=== PATIENT | male | born 1935 | race Caucasian/White ===

== ENCOUNTER 2018-09-06 18:09 | Observation (INO) | payer MEDICARE, OTHER ==
--- NOTE | 2018-09-06 18:31 | ER Document Report ---
ED General - General Mode of Arrival: Medic Information source: Patient <DAGOBERTO MANDEL - Last Filed: 09/07/18 02:58> <GRETCHEN MCCORMICK - Last Filed: 09/07/18 03:31> - General Chief Complaint: Low Blood Pressure Stated Complaint: LOW BLOOD PRESSURE Time Seen by Provider: 09/06/18 18:20 Notes: Patient is an 83 year old male presenting to the emergency department via EMS due to decreased blood pressure. Patient is a poor historian due to his dementia and states he does not know why he is here, further stating "my sent me here". He later admits to previously being a little lightheaded. He denies any chest pain, vomiting, diarrhea or any focal pain. Nurses states, according to EMS, the patient's took the his blood pressure after he complained about being lightheaded. She recorded a blood pressure in the 40s systolic via pressure cuff and proceeded to call EMS. EMS recorded a blood pressure of 105/58 and gave 100 cc's of fluid. Patient's blood pressure at bedside is 90/58. (TEQUILADAGOBERTO PULIDO) - Related Data Allergies/Adverse Reactions: No Known Allergies Allergy (Verified 09/06/18 20:45) Past Medical History - General Information source: Patient Cannot obtain history due to: Dementia - Social History Smoking Status: Unknown if Ever Smoked Family History: Reviewed & Not Pertinent <DAGOBERTO MANDEL - Last Filed: 09/07/18 02:58> Review of Systems - Review of Systems -: Yes ROS unobtainable due to patient's medical condition <TEQUILADAGOBERTO - Last Filed: 09/07/18 02:58> Physical Exam <DAGOBERTO MANDEL - Last Filed: 09/07/18 02:58> <GRETCHEN MCCORMICK Bety - Last Filed: 09/07/18 03:31> - Vital signs Vitals: Resp BP Pulse Ox 19 90/48 L 97 09/06/18 18:16 09/06/18 18:16 09/06/18 18:16 - Notes Notes: GENERAL: Alert, interacts well. No acute distress. HEAD: Normocephalic, atraumatic. EYES: Pupils equal, round, and reactive to light. Extraocular movements intact. ENT: Oral mucosa dry, tongue midline. NECK: Full range of motion. Supple. Trachea midline. LUNGS: Clear to auscultation bilaterally, no wheezes, rales, or rhonchi. No respiratory distress. HEART: Regular rate and rhythm. No murmurs, gallops, or rubs. ABDOMEN: Soft, non-tender. Non-distended. Bowel sounds present in all 4 quadrants. EXTREMITIES: Moves all 4 extremities spontaneously. No edema, radial and dorsalis pedis pulses 2/4 bilaterally. No cyanosis. NEUROLOGICAL: Alert. Oriented to person and place, not to time. PSYCH: Normal affect, normal mood. SKIN: Warm, dry, normal turgor. No rashes or lesions noted. (DAGOBERTO MANDEL) Course - Laboratory Result Diagrams: 09/06/18 18:20 09/06/18 18:20 <DAGOBERTO MANDEL - Last Filed: 09/07/18 02:58> - Laboratory Result Diagrams: 09/06/18 18:20 09/06/18 18:20 <GRETCHEN MCCORMICK - Last Filed: 09/07/18 03:31> - Re-evaluation Re-evalutation: 09/06/18 19:20 Upon reevaluation patient resting comfortably and is at bedside. She states that today that he was about ready to get in the car when he had a presyncopal event. He did not fall but he was assisted to be able to sit down. She happened to be having a doctor's appointment and was brought into the doctor office. She states that his systolic blood pressure was in the 50s. Upon arrival EMS systolic was greater than 100. Initial EKG concerning findings other than right bundle branch block with no previous on file. Patient does have a pacemaker and has atrial paced complexes. Patient does appear to have moderate dry oral mucous membranes provide 1/2 L fluid bolus and perform orthostatic vital signs. states that he does have a appointment with his shoe turner tomorrow for regularly routine visit. 09/06/18 20:32 Patient will be admitted for observation will be provided gentle hydration. Job she did have a mild orthostatic hypotension and with dry oral mucous membranes I suspect he is behind on his fluid intake. However, due to his comorbidities and near syncopal event will be observed overnight on telemetry while fluids are being provided. (GRETCHEN MCCORMICK) - Vital Signs Vital signs: Temp Pulse Resp BP Pulse Ox 98.0 F 71 16 133/58 H 96 09/07/18 00:15 09/07/18 00:15 09/07/18 00:15 09/07/18 00:15 09/07/18 00:15 - Laboratory Laboratory results interpreted by me: 09/06/18 09/06/18 09/06/18 18:20 18:20 18:20 RDW 17.7 H PT 23.3 H BUN 21 H Creatinine 1.44 H Est GFR ( Amer) 57 L Est GFR (Non-Af Amer) 47 L Glucose 128 H AST 15 L ALT 18 L Alkaline Phosphatase 129 H - EKG Interpretation by Me Additional EKG results interpreted by me: 09/06/18 19:22 Time 18:27, Rate 70, atrial paced complexes, RBBB, normal axis (GRETCHEN MCCORMICK) Discharge <DAGOBERTO MANDEL - Last Filed: 09/07/18 02:58> - Discharge Admitting Provider: [facility] Admitted: Telemetry <GRETCHEN MCCORMICK - Last Filed: 09/07/18 03:31> - Discharge Clinical Impression: Orthostatic hypotension, Dehydration, Near syncope Condition: Good Disposition: ADMITTED OBSERVATION Scribe Attestation: 09/07/18 03:31 I personally performed the services described in the documentation, reviewed and edited the documentation which was dictated to the scribe in my presence, and it accurately records my words and actions. (GRETCHEN MCCORMICK) Scribe Documentation - Scribe Written by Humbertoe:: Arlin Sellers, 09/06/2018 19:00 acting as scribe for :: Hitesh <DAGOBERTO MANDEL - Last Filed: 09/07/18 02:58>
[2018-09-06] MEDS ORDERED: NORMAL SALINE 500 ML IV ONE (18:41)
[2018-09-06 18:48] LABS: ABSOLUTE EOSINOPHILS # (AUTO) 0.4 10^3/uL (0.0-0.6); ABSOLUTE LYMPHOCYTES (AUTO) 1.2 10^3/uL (0.5-4.7); ABSOLUTE MONOCYTES (AUTO) 0.7 10^3/uL (0.1-1.4); BASOPHILS % (AUTO) 0.5 % (0-2); HEMATOCRIT 44.7 % (37.9-51.0); LYMPHOCYTES % (AUTO) 16.8 % (13-45); MEAN CORPUSCULAR HEMOGLOBIN 30.8 pg (27.0-33.4); MEAN CORPUSCULAR HGB CONC 33.6 g/dL (32.0-36.0); MEAN CORPUSCULAR VOLUME 92 fl (80-97); MONOCYTES % (AUTO) 9.3 % (3-13); PLATELET COUNT 175 10^3/uL (150-450); RED BLOOD COUNT 4.88 10^6/uL (4.35-5.55); RED CELL DISTRIBUTION WIDTH 17.7 % (11.5-14.0); SEGMENTED NEUTROPHILS % (AUTO) 68.4 % (42-78); TOTAL CELLS COUNTED % (AUTO) 100 %; WHITE BLOOD COUNT 7.2 10^3/uL (4.0-10.5)
[2018-09-06 19:03] LABS: ALANINE AMINOTRANSFERASE 18 U/L (21-72); ALBUMIN 3.9 g/dL (3.5-5.0); ALKALINE PHOSPHATASE 129 U/L (38-126); ANION GAP 14 (5-19); ASPARTATE AMINO TRANSFERASE 15 U/L (17-59); BILIRUBIN,DIRECT 0.2 mg/dL (0.0-0.4); BILIRUBIN,TOTAL 0.7 mg/dL (0.2-1.3); BLOOD UREA NITROGEN 21 mg/dL (7-20); CALCIUM 8.9 mg/dL (8.4-10.2); CARBON DIOXIDE 24 mmol/L (22-30); CHLORIDE 101 mmol/L (98-107); GLUCOSE 128 mg/dL (75-110); POTASSIUM 4.8 mmol/L (3.6-5.0); SODIUM 138.7 mmol/L (137-145); TOTAL PROTEIN 7.3 g/dL (6.3-8.2)
[2018-09-06 19:14] LABS: NT PRO BNP 107 pg/mL (<450); TROPONIN I < 0.012 ng/mL
--- NOTE | 2018-09-06 19:20 | EKG REPORT ---
SEVERITY:- ABNORMAL ECG - ATRIAL-PACED COMPLEXES RBBB AND LPFB : Confirmed by: Jocelyn Preston MD 06-Sep-2018 19:19:22
--- NOTE | 2018-09-06 19:34 | RADIOLOGY REPORT (SQ) ---
EXAM DESCRIPTION: CHEST SINGLE VIEW COMPLETED DATE/TIME: 09/06/2018 7:15 pm REASON FOR STUDY: near syncope COMPARISON: None. NUMBER OF VIEWS: One view. TECHNIQUE: Single frontal radiographic view of the chest acquired. LIMITATIONS: None. FINDINGS: LUNGS AND PLEURA: Low lung volumes. No opacities, masses or pneumothorax. No pleural eff usion. MEDIASTINUM AND HILAR STRUCTURES: No masses. No contour abnormality. HEART AND VASCULAR STRUCTURES: Normal size. No evidence for failure. BONES: No acute findings. HARDWARE: Dual lead transvenous pacemaker. OTHER: No other significant finding. IMPRESSION: LOW LUNG VOLUMES. NO SIGNIFICANT RADIOGRAPHIC FINDING IN THE CHEST. TECHNICAL DOCUMENTATION: JOB ID: [id number] [employer]- All Rights Reserved Reading location - IP/workstation name: [email or web address]
[2018-09-06] MEDS ORDERED: NORMAL SALINE 1000 ML 1,000 ML IV ONE (20:32)
[2018-09-06] MEDS ORDERED: ACETAMINOPHEN 325 MG TABLET PO PRN (21:54)
[2018-09-06] MEDS ORDERED: MAG HYDROX/AL HYDROX/SIMETH SUSP 30 ML UDCUP PO PRN (21:54)
[2018-09-06] MEDS ORDERED: PROMETHAZINE HCL 25 MG TABLET PO PRN (21:54)
[2018-09-06] MEDS ORDERED: PROMETHAZINE HCL INJ 25 MG/1 ML VIAL IV PRN (21:54)
[2018-09-06] MEDS ORDERED: NORMAL SALINE 1000 ML 1,000 ML IV PRN (21:54)
[2018-09-06] MEDS ORDERED: RIVAROXABAN 10 MG TABLET PO ONE (22:30)
[2018-09-06 22:49] LABS: INTERNATIONAL RATION (INR) 1.96; PROTHROMBIN TIME 23.3 SEC (11.4-15.4)
[2018-09-06] MEDS ORDERED: RIVAROXABAN 10 MG TABLET ONE (22:58)
[2018-09-06] MEDS ORDERED: TAMSULOSIN HCL 0.4 MG CAP.SR.24H PO ONE (23:00)
--- NOTE | 2018-09-06 23:05 | PDOC H&P ---
History of Present Illness Admission Date/PCP: 09/06/18 20:50 Janice Calix MD Patient complains of: Near syncope History of Present Illness: KATHERINE BAILEY is a 83 year old male who came to the emergency department via EMS. His tells me over the phone ([phone]), they went to visit his doctor and were waiting for 1/2-hour, he did not have anything to drink, he started feeling lightheaded, faint and very weak, he did not fall but he was really of balance, they called EMS and when they arrive they do his blood pressure and the systolic was in the 40s. Gave 100 mL of normal saline. Patient has history of dementia and cannot cooperate reliable with the interview. Patient denies any dizziness, lightheadedness, nausea, vomiting, shortness of breath, chest pain, abdominal pain, changes in his bowel movements or urine. Upon arrival to the hospital his systolic blood pressure was grater than 100 but dropped down and by the time I went to see him was 89/51. Patient totally asymptomatic. In the ED given a total of 500 cc IV. Patient has mild orthostatic hypotension with dry oral mucous membranes. Past Medical History Cardiac Medical History: Reports: Atrial Fibrillation - On Xarelto, Congestive Heart Failure - Unknown EF, Myocardial Infarction - When he was young GI Medical History: Reports: Gastroesophageal Reflux Disease Psychiatric Medical History: Reports: Dementia Past Surgical History Past Surgical History: Reports: Cholecystectomy, Herniorrhaphy, Pacemaker Social History Smoking Status: Current Every Day Smoker - Patient states he smokes 1 pack/day, will have to confirm this data Frequency of Alcohol Use: None Hx Recreational Drug Use: No Hx Prescription Drug Abuse: No Past Social History Note: Lives with his , telephone #[phone]. His son is the KIM Shah telephone #[phone] Family History Parental Family History Reviewed: No - Unable to obtain Children Family History Reviewed: NA Sibling(s) Family History Reviewed.: NA Medication/Allergy Home Medications: Lisinopril [Prinivil 10 mg Tablet] 10 mg PO DAILY 09/06/18 Metoprolol Tartrate [Lopressor 25 mg Tablet] 12.5 mg PO Q12 09/06/18 Rivaroxaban [Xarelto] 20 mg PO DAILY 09/06/18 Sertraline HCl [Zoloft 50 mg Tablet] 100 mg PO DAILY 09/06/18 Tamsulosin HCl [Flomax 0.4 mg Cap.sr] 0.4 mg PO QPM 09/06/18 Allergies/Adverse Reactions: No Known Allergies Allergy (Verified 09/06/18 20:45) Review of Systems Review of Systems: As outlined above, others negative Physical Exam Vital Signs: Temp Pulse Resp BP Pulse Ox 98.1 F 70 16 111/56 L 95 09/06/18 22:46 09/06/18 22:46 09/06/18 22:46 09/06/18 22:46 09/06/18 22:46 Additional comments: General appearance: Well-developed, well-nourished, alert and cooperative, and appears to be in no acute distress Head: Normocephalic Eyes: PEERL, EOMI, vision is grossly intact. Ears: External auditory canal and tympanic membranes clear, hearing grossly intact. Nose: No nasal discharge. Throat: Oral cavity and pharynx normal. No inflammation, swelling, exudate or lesions. Neck: Neck supple, nontender without lymphadenopathy, masses or thyromegaly. Cardiac: Normal S1 and S2. No S3, S4 or murmurs. Rhythm is regular. There is no peripheral edema, cyanosis or pallor. Extremities are warm and well perfused. Capillary refill is less than 2 seconds. No carotid bruits. Lungs: Clear to auscultation and percussion without rales, rhonchi, wheezing or diminished breath sounds. Not using accessory muscles. Abdomen: Positive bowel sounds. Soft. Nondistended, nontender. No guarding or rebound. No masses. No hepatosplenomegaly Extremities: No significant deformity or joint abnormality. No edema. Peripheral pulses intact. No varicosities. Neurological: Cranial nerves II through XII grossly intact. Strength and sensation symmetric and intact throughout. Reflexes 2+ throughout. Skin: Skin normal color, texture and turgor with no lesions or eruptions, warm and dry. Psychiatric: The mental examination revealed the patient was oriented to person , place, could not tell me the month, date, year or president. Results Laboratory Results: 09/06/18 09/06/18 09/06/18 18:20 18:20 18:20 WBC 7.2 RBC 4.88 Hgb 15.0 Hct 44.7 MCV 92 MCH 30.8 MCHC 33.6 RDW 17.7 H Plt Count 175 Seg Neutrophils % 68.4 Lymphocytes % 16.8 Monocytes % 9.3 Eosinophils % 5.0 Basophils % 0.5 Absolute Neutrophils 5.0 Absolute Lymphocytes 1.2 Absolute Monocytes 0.7 Absolute Eosinophils 0.4 Absolute Basophils 0.0 PT INR Sodium 138.7 Potassium 4.8 Chloride 101 Carbon Dioxide 24 Anion Gap 14 BUN 21 H Creatinine 1.44 H Est GFR ( Amer) 57 L Est GFR (Non-Af Amer) 47 L Glucose 128 H Calcium 8.9 Magnesium 1.9 Total Bilirubin 0.7 Direct Bilirubin 0.2 AST 15 L ALT 18 L Alkaline Phosphatase 129 H Troponin I < 0.012 NT-Pro-B Natriuret Pep 107 Total Protein 7.3 Albumin 3.9 09/06/18 18:20 WBC RBC Hgb Hct MCV MCH MCHC RDW Plt Count Seg Neutrophils % Lymphocytes % Monocytes % Eosinophils % Basophils % Absolute Neutrophils Absolute Lymphocytes Absolute Monocytes Absolute Eosinophils Absolute Basophils PT 23.3 H INR 1.96 Sodium Potassium Chloride Carbon Dioxide Anion Gap BUN Creatinine Est GFR ( Amer) Est GFR (Non-Af Amer) Glucose Calcium Magnesium Total Bilirubin Direct Bilirubin AST ALT Alkaline Phosphatase Troponin I NT-Pro-B Natriuret Pep Total Protein Albumin EKG Comments: Paced rhythm Impressions: Chest X-Ray 09/06/18 18:40 IMPRESSION: LOW LUNG VOLUMES. NO SIGNIFICANT RADIOGRAPHIC FINDING IN THE CHEST. Assessment & Plan - Diagnosis (1) Near syncope Is this a current diagnosis for this admission?: Yes Plan: Patient was at his doctor's office and has a near syncopal episode, it is felt most likely secondary to dehydration as his tells me that he usually forgets to eat or drink, patient had positive orthostatic vital signs. We will go ahead and hydrate the patient carefully as he has congestive heart failure of unknown ejection fraction. Will reassess orthostatic vital signs in the morning. Will do cardiac markers x3. Patient was a still hypotensive when I went to see him with a blood pressure of 81/51, he was asymptomatic, I am holding his lisinopril and metoprolol. If he improves by the morning probably no further workup needs to be done. (2) Dementia Is this a current diagnosis for this admission?: Yes Plan: Patient has advanced dementia, lives with his , his functional. tells me that he has been recently placed on sertraline about a week and a half ago as he was fidgeting. (3) Paroxysmal atrial fibrillation Is this a current diagnosis for this admission?: Yes Plan: Continue with metoprolol and Xarelto (4) Congestive heart failure Qualifiers: Heart failure chronicity: unspecified Is this a current diagnosis for this admission?: Yes Plan: Unknown if systolic or diastolic, does not know. Patient is not on Lasix. (5) Acute renal failure Qualifiers: Acute renal failure type: unspecified Qualified Code(s): N17.9 - Acute kidney failure, unspecified Is this a current diagnosis for this admission?: Yes Plan: BUN 21 and creatinine 1.44, this is unclear if this is acute or CKD, we are given IV fluids overnight and reassess the renal panel in the morning. At this point I do not feel a further workup is warranted. - Time Time Spent: 50 to 70 Minutes - Plan Summary Plan Summary: Case discussed with , she agrees with the plan.
[2018-09-07 04:54] LABS: APPEARANCE,URINE CLEAR; BILIRUBIN,URINE NEGATIVE (NEGATIVE); COLOR,URINE STRAW; GLUCOSE, URINE NEGATIVE (NEGATIVE); KETONES,URINE NEGATIVE (NEGATIVE); LEUKOCYTE ESTERASE,URINE NEGATIVE (NEGATIVE); NITRITE,URINE NEGATIVE (NEGATIVE); PROTEIN,URINE NEGATIVE (NEGATIVE); URINE SPECIFIC GRAVITY 1.006
[2018-09-07] MEDS: SERTRALINE HCL 50 MG TABLET PO SCH (10:45)
[2018-09-07 11:44] LABS: HEMATOCRIT 41.7 % (37.9-51.0); HEMOGLOBIN 14.2 g/dL (13.5-17.0); MEAN CORPUSCULAR HEMOGLOBIN 30.6 pg (27.0-33.4); MEAN CORPUSCULAR HGB CONC 33.9 g/dL (32.0-36.0); MEAN CORPUSCULAR VOLUME 90 fl (80-97); PLATELET COUNT 145 10^3/uL (150-450); RED BLOOD COUNT 4.63 10^6/uL (4.35-5.55); RED CELL DISTRIBUTION WIDTH 17.8 % (11.5-14.0); WHITE BLOOD COUNT 5.8 10^3/uL (4.0-10.5)
--- NOTE | 2018-09-07 12:20 | PDOC PROGRESS REPORT ---
Subjective Progress Note for:: 09/07/18 Subjective:: 09/06/18: KATHERINE PATHAK is a 83 year old male who presented to the emergency room with a history of acute near syncope. He was in his physician's office waiting room for approximately 1/2-hour and when he started to get up to go to the exam room he felt lightheaded, off balance, very weak and as though he were going to faint. EMS was summoned to the doctor's office where they reported an initial systolic blood pressure of 40. EMS administered a 100 mL bolus of normal saline and proceeded to bring the patient to the hospital. Mr. Pathak has significant dementia and is unable to provide reliable medical information to assist in his evaluation. In the emergency room his blood pressure was initially greater than 100 systolic but gradually dropped into the low 90s and upper 80s despite receiving a 500 mL bolus dose of normal saline. He was further noted to have asymptomatic orthostasis in the emergency room tolerating a blood pressure of 89/51 when standing. Katherine was therefore admitted to inpatient observation status and continued on IV fluids. His antihypertensive medications of metoprolol and lisinopril were held and his orthostatic vital signs were monitored. 09/07/18: Mr. Pathak is feeling well today and has noted no further symptoms of lightheadedness, weakness, loss of balance or sense of fainting. He has not had a headache or any intolerance of his diet due to nausea or vomiting. He denies chest pain and abdominal pain and states that he feels as well as usual. We will monitor his orthostatic vital signs today and obtain an echocardiogram , carotid Doppler and one more cardiac enzyme set to aid in diagnosis and assist in planning treatment going forward. He will be continued off of his antihypertensive medications and a physical therapy consult will be obtained. Reason For Visit: NEAR SYNCOPE Physical Exam Vital Signs: Temp Pulse Resp BP Pulse Ox 98.0 F 70 16 142/54 H 95 09/07/18 08:41 09/07/18 08:41 09/07/18 08:41 09/07/18 08:41 09/07/18 08:41 Intake & Output 09/05/18 09/06/18 09/07/18 23:59 23:59 23:59 Output Total 200 Balance -200 Weight 79.3 kg General appearance: PRESENT: no acute distress, cooperative Head exam: PRESENT: atraumatic, normocephalic Eye exam: PRESENT: EOMI. ABSENT: conjunctival injection, nystagmus, periorbital swelling, scleral icterus Ear exam: PRESENT: normal external ear exam. ABSENT: bleeding, drainage Mouth exam: PRESENT: neck supple, tongue midline Neck exam: ABSENT: thyromegaly, tracheal deviation Respiratory exam: PRESENT: clear to auscultation denise, symmetrical, unlabored Cardiovascular exam: PRESENT: RRR. ABSENT: clicks, diastolic murmur, gallop, rubs, systolic murmur Vascular exam: PRESENT: normal capillary refill. ABSENT: pallor GI/Abdominal exam: PRESENT: normal bowel sounds, soft Rectal exam: PRESENT: deferred Extremities exam: ABSENT: joint swelling, pedal edema Musculoskeletal exam: PRESENT: full ROM, normal inspection Neurological exam: PRESENT: alert, oriented to person, CN II-XII grossly intact. ABSENT: oriented to place, oriented to time, oriented to situation, motor sensory deficit Psychiatric exam: PRESENT: appropriate affect, normal mood, other - Mild confusion with short-term memory deficits noted. Skin exam: ABSENT: jaundice, rash, urticaria Results Laboratory Results: 09/07/18 04:00 Urine Color STRAW Urine Appearance CLEAR Urine pH 6.0 Ur Specific Harper 1.006 Urine Protein NEGATIVE Urine Glucose (UA) NEGATIVE Urine Ketones NEGATIVE Urine Blood NEGATIVE Urine Nitrite NEGATIVE Ur Leukocyte Esterase NEGATIVE Urine WBC (Auto) 0 09/07/18 09/07/18 00:17 06:09 Troponin I < 0.012 < 0.012 EKG Comments: EKG interpreted by me: There is an atrial electronically paced rhythm at 70 with a right bundle branch block and a left posterior hemiblock noted. Impressions: Chest X-Ray 09/06/18 18:40 IMPRESSION: LOW LUNG VOLUMES. NO SIGNIFICANT RADIOGRAPHIC FINDING IN THE CHEST. 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 Assessment & Plan - Diagnosis (1) Near syncope Is this a current diagnosis for this admission?: Yes Plan: Patient had a near syncopal episode at his primary care provider's office and was found to be hypotensive by EMS. He responded to volume replacement therapy given by EMS and continued in the emergency room. He currently has asymptomatic orthostasis. This is being treated by withholding his metoprolol and lisinopril and continued volume support with IV fluids until such time as his oral intake is adequate. He will be evaluated by physical therapy today. He will also have a echocardiogram and carotid Doppler performed to evaluate his cardiac and large vessel functions to rule out other causes of syncope. His CBC, metabolic profile and magnesium levels to be monitored throughout his hospital course. He will have serial orthostatic vital sign measurements obtained and he will be reintroduced to activity with assistance to prevent any falls or injuries. (2) Orthostatic hypotension Is this a current diagnosis for this admission?: Yes Plan: Patient has been noted to have orthostasis which is currently asymptomatic but was symptomatic in his primary care physician's office with his blood pressure measured at 40 systolic by EMS and rapidly responding to greater than 100 systolic after a bolus dose of normal saline and placing the patient in a recumbent position. His continued orthostasis is probably due to ongoing effect of his lisinopril and metoprolol which he had been taking for treatment of chronic diastolic congestive heart failure [place] [employer] class I. He will be given supportive care and symptomatic care throughout the rest of his hospitalization. I am encouraging him to drink fluids and eat a healthy diet as well as initiate activity and monitor his ability to tolerate walking and standing. (3) Acute renal failure Qualifiers: Acute renal failure type: unspecified Qualified Code(s): N17.9 - Acute kidney failure, unspecified Is this a current diagnosis for this admission?: Yes Plan: Patient was initial lab work showed elevation of his BUN and creatinine at 21 and 1.44 respectively. This could reflect a acute renal injury/insufficiency and will be treated with IV fluid rehydration to resolve vascular hypovolemia and thereby treat the renal insufficiency. Kidney functions will be monitored at regular intervals throughout the hospital course. (4) Dehydration Is this a current diagnosis for this admission?: Yes Plan: The patient by his 's report had not been drinking significant amounts of fluid for the day or 2 prior to this event. He is unable to contribute to the historical discussion due to his dementia. His initial laboratory values reflect a possible acute renal insufficiency with a certain potential for this to be due to dehydration. Patient has responded with reduction in/resolution of his symptoms after being given volume core inspector's and as such the diagnosis of dehydration with hypovolemia is most likely. He will be continued on IV fluid until such time as he is taking adequate oral fluids. His renal functions will be monitored at regular intervals throughout his hospital course. (5) Paroxysmal atrial fibrillation Is this a current diagnosis for this admission?: Yes Plan: The patient has a history of chronic paroxysmal atrial fibrillation for which she is taking Xarelto to prevent embolic stroke. He is continued on his Xarelto throughout the hospital course. His cardiac rhythm is being monitored and thus far has been stable. No further treatment or intervention in the patient's paroxysmal atrial fibrillation will be given however discontinuation of his metoprolol may require use of another agent for controlling his heart rate should he develop a paroxysm of atrial fibrillation. Consideration will be given to initiating digoxin therapy on this patient as a means of providing rate control without causing postural blood pressure changes. Since patient has a pacemaker with a rate of 70 digoxin therapy would appear to be a reasonably safe alternative to metoprolol. (6) Congestive heart failure Qualifiers: Heart failure chronicity: chronic Is this a current diagnosis for this admission?: Yes Plan: Patient is currently taking lisinopril and metoprolol for his congestive heart failure. Lisinopril is highly suspected is being a contributing factor to his syncope and orthostasis. I will hold both medications during his hospital course until such time was appears that we can restart either of them and if that time occurs during his hospital course I will restart metoprolol. Since I would be using metoprolol to treat congestive heart failure I would change him to the metoprolol succinate salt and dose at 25 mg once daily. He will require follow-up with his primary care provider for ongoing reevaluation and treatment of his chronic diastolic congestive heart failure [place] [employer] class I. (7) Dementia Qualifiers: Dementia type: Alzheimer's disease Alzheimer's disease onset: late-onset Dementia behavioral disturbance: without behavioral disturbance Qualified Code (s): G30.1 - Alzheimer's disease with late onset; F02.80 - Dementia in other diseases classified elsewhere without behavioral disturbance; F02.80 - Dementia in other diseases classified elsewhere without behavioral disturbance; F02.80 - Dementia in other diseases classified elsewhere without behavioral disturbance Is this a current diagnosis for this admission?: Yes Plan: Mr. Pathak has chronic dementia of moderate severity. His inability to contribute to historical aspects of his current illness do make diagnosis and treatment slightly more challenging. No specific therapy is advised for the patient's dementia at this time. - Time Time Spent with patient: 35 or more minutes Medications reviewed and adjusted accordingly: Yes Anticipated discharge: Home with Homehealth - Inpatient Certification Based on my medical assessment, after consideration of the patient's comorbidities, presenting symptoms, or acuity I expect that the services needed warrant INPATIENT care.: Yes I certify that my determination is in accordance with my understanding of Medicare's requirements for reasonable and necessary INPATIENT services [42 CFR 412.3e].: Yes Medical Necessity: Need Close Monitoring Due to Risk of Patient Decompensation, Need For Continuous Telemetry Monitoring
--- NOTE | 2018-09-07 12:28 | EKG REPORT ---
SEVERITY:- ABNORMAL ECG - ATRIAL-PACED COMPLEXES RBBB AND LPFB : Confirmed by: Jocelyn Preston MD 07-Sep-2018 12:27:39
[2018-09-07 12:54] LABS: ALANINE AMINOTRANSFERASE 13 U/L (21-72); ALBUMIN 3.3 g/dL (3.5-5.0); ALKALINE PHOSPHATASE 107 U/L (38-126); ANION GAP 7 (5-19); ASPARTATE AMINO TRANSFERASE 15 U/L (17-59); BILIRUBIN,DIRECT 0.2 mg/dL (0.0-0.4); BILIRUBIN,TOTAL 0.7 mg/dL (0.2-1.3); BLOOD UREA NITROGEN 17 mg/dL (7-20); CALCIUM 8.7 mg/dL (8.4-10.2); CARBON DIOXIDE 27 mmol/L (22-30); CHLORIDE 106 mmol/L (98-107); GLUCOSE 78 mg/dL (75-110); POTASSIUM 4.5 mmol/L (3.6-5.0); SODIUM 140.3 mmol/L (137-145); TOTAL PROTEIN 6.3 g/dL (6.3-8.2)
[2018-09-07] MEDS ORDERED: PROMETHAZINE HCL INJ 25 MG/1 ML VIAL IV PRN (14:00)
[2018-09-07] MEDS ORDERED: DIGOXIN 0.25 MG TABLET PO ONE (14:00)
[2018-09-07] MEDS ORDERED: RIVAROXABAN 10 MG TABLET PO SCH (17:00)
[2018-09-07] MEDS ORDERED: TAMSULOSIN HCL 0.4 MG CAP.SR.24H PO SCH (18:00)
--- NOTE | 2018-09-07 21:12 | RADIOLOGY REPORT (SQ) ---
EXAM DESCRIPTION: EXAM DESCRIPTION: US CAROTID DOPPLER BILATERAL COMPLETED DATE/TME: 09/07/2018 00:00 CLINICAL HISTORY: 83 years, Male, Near syncope TECHNIQUE: Grayscale and color Doppler ultrasound examination of the carotid and vertebral artery systems bilaterally. Maximum peak systolic velocity (PSV) / end diastolic velocity (EDV) measurements were obtained. COMPARISON: None. FINDINGS: RIGHT: Small amount of atherosclerotic plaque. Common carotid velocity is 81 cm/second. Peak ICA velocity is 71 cm/second. Normal IC/CC ratio. Vertebral artery is not identified.. LEFT: Small amount of atherosclerotic plaque. Common carotid velocity is 75 cm/second. Peak ICA velocity is 98 cm/second. Normal IC/CC ratio. Vertebral artery is not seen. Elevated velocities in the ECAs bilaterally. IMPRESSION: No hemodynamically significant stenosis in the carotid bulbs or internal carotid arteries. Nonvisualization of both the right and left vertebral arteries. Consider further evaluation with CTA if indicated
[2018-09-07] MEDS ORDERED: METOPROLOL SUCCINATE 25 MG TAB.SR.24H PO SCH (22:00)
[2018-09-08 04:54] LABS: HEMATOCRIT 39.2 % (37.9-51.0); HEMOGLOBIN 13.2 g/dL (13.5-17.0); MEAN CORPUSCULAR HEMOGLOBIN 30.4 pg (27.0-33.4); MEAN CORPUSCULAR HGB CONC 33.6 g/dL (32.0-36.0); MEAN CORPUSCULAR VOLUME 90 fl (80-97); PLATELET COUNT 129 10^3/uL (150-450); RED BLOOD COUNT 4.33 10^6/uL (4.35-5.55); RED CELL DISTRIBUTION WIDTH 17.7 % (11.5-14.0); WHITE BLOOD COUNT 5.4 10^3/uL (4.0-10.5)
[2018-09-08 05:27] LABS: ANION GAP 10 (5-19); BLOOD UREA NITROGEN 19 mg/dL (7-20); CALCIUM 8.5 mg/dL (8.4-10.2); CARBON DIOXIDE 23 mmol/L (22-30); CHLORIDE 108 mmol/L (98-107); GLUCOSE 99 mg/dL (75-110); POTASSIUM 4.9 mmol/L (3.6-5.0); SODIUM 141.4 mmol/L (137-145)
[2018-09-08] MEDS: SERTRALINE HCL 50 MG TABLET PO SCH (09:25)
[2018-09-08] MEDS ORDERED: DIGOXIN 0.125 MG TABLET PO SCH (10:00)
[2018-09-08 10:50] VITALS: BP 125/42
--- NOTE | 2018-09-08 11:05 | PDOC DISCHARGE SUMMARY ---
General - Admit/Disc Date/PCP Admission Date/Primary Care Provider: 09/06/18 20:50 GORDON CALIX PA-C Discharge Date: 09/08/18 - Discharge Diagnosis (1) Near syncope Is this a current diagnosis for this admission?: Yes Summary: Patient had a near syncopal episode at his primary care provider's office and was found to be hypotensive by EMS. He responded to volume replacement therapy given by EMS and continued in the emergency room. He currently has asymptomatic orthostasis. This is being treated by withholding his metoprolol and lisinopril and continued volume support with IV fluids until such time as his oral intake is adequate. He will be evaluated by physical therapy today. He will also have a echocardiogram and carotid Doppler performed to evaluate his cardiac and large vessel functions to rule out other causes of syncope. His CBC, metabolic profile and magnesium levels to be monitored throughout his hospital course. He will have serial orthostatic vital sign measurements obtained and he will be reintroduced to activity with assistance to prevent any falls or injuries. 09/08/18: Mr. Bailey responded well to withdrawal of his antihypertensive agents and his heart rate has been well controlled using digoxin. He has been free of syncopal symptoms and his pressure has remained stable as have the remainder of his vital signs all low his blood pressure does drop with change in position it does recover reasonably well. He has had no orthostatic symptoms since yesterday and has been up and active walking in the halls initially with assistance but subsequently since he was doing so well he has been able to ambulate on his own in his room and in the [place]. (2) Orthostatic hypotension Is this a current diagnosis for this admission?: Yes Summary: Patient has been noted to have orthostasis which is currently asymptomatic but was symptomatic in his primary care physician's office with his blood pressure measured at 40 systolic by EMS and rapidly responding to greater than 100 systolic after a bolus dose of normal saline and placing the patient in a recumbent position. His continued orthostasis is probably due to ongoing effect of his lisinopril and metoprolol which he had been taking for treatment of chronic diastolic congestive heart failure [place] Heart Association class I. He will be given supportive care and symptomatic care throughout the rest of his hospitalization. I am encouraging him to drink fluids and eat a healthy diet as well as initiate activity and monitor his ability to tolerate walking and standing. 09/08/18: Mr. Bailey responded well to withdrawal of his antihypertensive agents and his heart rate has been well controlled using digoxin. He has been free of syncopal symptoms and his pressure has remained stable as have the remainder of his vital signs all low his blood pressure does drop with change in position it does recover reasonably well. He has had no orthostatic symptoms since yesterday and has been up and active walking in the halls initially with assistance but subsequently since he was doing so well he has been able to ambulate on his own in his room and in the [place]. (3) Acute renal failure Is this a current diagnosis for this admission?: Yes Summary: Patient's initial lab work showed elevation of his BUN and creatinine at 21 and 1.44 respectively. This could reflect a acute renal injury/insufficiency and will be treated with IV fluid rehydration to resolve vascular hypovolemia and thereby treat the renal insufficiency. Kidney functions will be monitored at regular intervals throughout the hospital course. 09/08/18: Patient's renal functions have returned to his baseline level with a creatinine of 1.2 at the time of discharge. (4) Dehydration Is this a current diagnosis for this admission?: Yes Summary: The patient by his 's report had not been drinking significant amounts of fluid for the day or 2 prior to this event. He is unable to contribute to the historical discussion due to his dementia. His initial laboratory values reflect a possible acute renal insufficiency with a certain potential for this to be due to dehydration. Patient has responded with reduction in/resolution of his symptoms after being given volume rehabilitation center manager's and as such the diagnosis of dehydration with hypovolemia is most likely. He will be continued on IV fluid until such time as he is taking adequate oral fluids. His renal functions will be monitored at regular intervals throughout his hospital course. 09/08/18: Patient was treated with IV fluids and showed an excellent clinical response. He was eating and drinking well with good and adequate intake of fluids. He did not require further IV fluids after the initial rehydration. (5) Paroxysmal atrial fibrillation Is this a current diagnosis for this admission?: Yes Summary: The patient has a history of chronic paroxysmal atrial fibrillation for which she is taking Xarelto to prevent embolic stroke. He is continued on his Xarelto throughout the hospital course. His cardiac rhythm is being monitored and thus far has been stable. No further treatment or intervention in the patient's paroxysmal atrial fibrillation will be given however discontinuation of his metoprolol may require use of another agent for controlling his heart rate should he develop a paroxysm of atrial fibrillation. Consideration will be given to initiating digoxin therapy on this patient as a means of providing rate control without causing postural blood pressure changes. Since patient has a pacemaker with a rate of 70 digoxin therapy would appear to be a reasonably safe alternative to metoprolol. As such she was started on digoxin at 125 mcg p.o. daily and this will be continued until he is seen in follow-up by his primary care provider. (6) Congestive heart failure Is this a current diagnosis for this admission?: Yes Summary: Patient was taking lisinopril and metoprolol for his congestive heart failure. Lisinopril is highly suspected is being a contributing factor to his syncope and orthostasis. I hed both medications during his hospital course, and they will continue to be held at the time of discharge. I have initiated treatment with digoxin 125 mcg daily. He will require follow-up with his primary care provider for ongoing reevaluation and treatment of his chronic diastolic congestive heart failure [place] Heart Association class I. (7) Dementia Is this a current diagnosis for this admission?: Yes Summary: Mr. Bailey has chronic dementia of moderate severity. His inability to contribute to historical aspects of his current illness do make diagnosis and treatment slightly more challenging. No specific therapy is advised for the patient's dementia at this time. - Additional Information Resuscitation Status: Full Code Discharge Diet: As Tolerated, Cardiac Discharge Activity: Activity As Tolerated Prescriptions: Digoxin [Lanoxin 0.125 mg Tablet] 0.125 mg PO DAILY 30 Days #30 tablet Home Medications: Rivaroxaban [Xarelto] 20 mg PO DAILY 09/06/18 Sertraline HCl [Zoloft 50 mg Tablet] 100 mg PO DAILY 09/06/18 Tamsulosin HCl [Flomax 0.4 mg Cap.sr] 0.4 mg PO QPM 09/06/18 Digoxin [Lanoxin 0.125 mg Tablet] 0.125 mg PO DAILY 30 Days #30 tablet 09/08/18 History of Present Illness Patient complains of: Near syncopal episode with orthostatic hypotension History of Present Illness: 09/06/18: ALEK BAILEY is a 83 year old male who presented to the emergency room with a history of acute near syncope. He was in his physician's office waiting room for approximately 1/2-hour and when he started to get up to go to the exam room he felt lightheaded, off balance, very weak and as though he were going to faint. EMS was summoned to the doctor's office where they reported an initial systolic blood pressure of 40. EMS administered a 100 mL bolus of normal saline and proceeded to bring the patient to the hospital. Mr. Bailey has significant dementia and is unable to provide reliable medical information to assist in his evaluation. In the emergency room his blood pressure was initially greater than 100 systolic but gradually dropped into the low 90s and upper 80s despite receiving a 500 mL bolus dose of normal saline. He was further noted to have asymptomatic orthostasis in the emergency room tolerating a blood pressure of 89/51 when standing. Alek was therefore admitted to inpatient observation status and continued on IV fluids. His antihypertensive medications of metoprolol and lisinopril were held and his orthostatic vital signs were monitored. Hospital Course Hospital Course: 09/07/18: Mr. Bailey is feeling well today and has noted no further symptoms of lightheadedness, weakness, loss of balance or sense of fainting. He has not had a headache or any intolerance of his diet due to nausea or vomiting. He denies chest pain and abdominal pain and states that he feels as well as usual. We will monitor his orthostatic vital signs today and obtain an echocardiogram , carotid Doppler and one more cardiac enzyme set to aid in diagnosis and assist in planning treatment going forward. He will be continued off of his antihypertensive medications and a physical therapy consult will be obtained. 09/08/18: Mr. Bailey is doing very well today he has been up and active walking in the [place] and has been very stable such that he has been able to walk without assistance. His vital signs have remained very stable though his blood pressure (140/64 Right Arm seated) still decreases significantly (20-30 mmHg) with standing it remains high enough that he does not become symptomatic. Is also noted that his heart rate does not change with change in position as he is essentially entirely reliant on his pacemaker. Within a short time after standing his blood pressure improves at or near his mean blood pressure. As his orthostatic symptoms have resolved with discontinuation of his lisinopril and metoprolol, I will not restart them at this time. He may require treatment utilizing one or both of these drugs again in the future but this will be determined by his primary care provider Gordon Calix. At the present time his rate is well controlled using oral digoxin 125 mcg daily. His digoxin level was 0.9 today and needs to be rechecked at his follow-up visit with Gordon Calix. Echocardiogram was performed during his hospital course but the reading is not yet available and may not be available for 3 days. Carotid Doppler studies were negative for significant disease. Because of his excellent clinical response to withdrawal of his antihypertensive agents feel the patient can be discharged home in improved and stable condition with follow- up performed by his primary care provider Gordon Calix within 1-2 weeks. Physical Exam Vital Signs: Temp Pulse Resp BP Pulse Ox 98.6 F 70 17 140/64 H 94 09/08/18 04:31 09/08/18 07:00 09/08/18 04:31 09/08/18 04:31 09/08/18 04:31 Intake & Output 09/06/18 09/07/18 09/08/18 23:59 23:59 23:59 Intake Total 2471 354 Output Total 200 Balance 2271 354 Weight 79.3 kg 79.3 kg General appearance: PRESENT: no acute distress, cooperative Head exam: PRESENT: atraumatic, normocephalic Respiratory exam: PRESENT: clear to auscultation denise, symmetrical, unlabored Cardiovascular exam: PRESENT: RRR. ABSENT: clicks, gallop, rubs Vascular exam: PRESENT: normal capillary refill. ABSENT: pallor Rectal exam: PRESENT: deferred Neurological exam: PRESENT: alert, oriented to person, oriented to place, CN II- XII grossly intact. ABSENT: motor sensory deficit Psychiatric exam: PRESENT: appropriate affect, normal mood, other - Mild confusion and mild short-term memory deficits Skin exam: ABSENT: jaundice, rash, urticaria Results Laboratory Results: 09/08/18 04:02 09/08/18 04:02 09/07/18 09/07/18 09/08/18 06:09 12:10 04:02 WBC 5.8 5.4 RBC 4.63 4.33 L Hgb 14.2 13.2 L Hct 41.7 39.2 MCV 90 90 MCH 30.6 30.4 MCHC 33.9 33.6 RDW 17.8 H 17.7 H Plt Count 145 L 129 L Sodium 140.3 Potassium 4.5 Chloride 106 Carbon Dioxide 27 Anion Gap 7 BUN 17 Creatinine 1.21 Est GFR ( Amer) > 60 Est GFR (Non-Af Amer) 57 L Glucose 78 Calcium 8.7 Magnesium 1.9 Total Bilirubin 0.7 AST 15 L ALT 13 L Alkaline Phosphatase 107 Total Protein 6.3 Albumin 3.3 L 09/08/18 04:02 WBC RBC Hgb Hct MCV MCH MCHC RDW Plt Count Sodium 141.4 Potassium 4.9 Chloride 108 H Carbon Dioxide 23 Anion Gap 10 BUN 19 Creatinine 1.23 Est GFR ( Amer) > 60 Est GFR (Non-Af Amer) 56 L Glucose 99 Calcium 8.5 Magnesium 2.0 Total Bilirubin AST ALT Alkaline Phosphatase Total Protein Albumin 09/07/18 09/07/18 09/07/18 00:17 06:09 12:10 Troponin I < 0.012 < 0.012 < 0.012 Impressions: Chest X-Ray 09/06/18 18:40 IMPRESSION: LOW LUNG VOLUMES. NO SIGNIFICANT RADIOGRAPHIC FINDING IN THE CHEST. Carotid Doppler Study 09/07/18 00:00 IMPRESSION: No hemodynamically significant stenosis in the carotid bulbs or internal carotid arteries. Nonvisualization of both the right and left vertebral arteries. Consider further evaluation with CTA if indicated Qualifiers - * PATIENT BEING DISCHARGED WITH ANY OF THE FOLLOWING DIAGNOSIS: No Plan Discharge Plan: Discharged home in improved and stable condition. Follow-up with primary care provider within 1-2 weeks. Time Spent: Greater than 30 Minutes
--- NOTE | 2018-09-08 20:05 | XCELERA REPORT ---
[address] [address] Transthoracic Echocardiogram Report Name: KATHERINE BAILEY Age: 83 yrs Gender: Male : 1935 Patient Status: Inpatient Patient Location: [address] [place], [place] [id number] Study Date: 09/07/2018 06:37 PM Height: 68 in Weight: 174 lb BSA: 1.9 m2 Procedure: A two-dimensional transthoracic echocardiogram with color flow and Doppler was performed. The study was technically difficult with many images being suboptimal in quality. Reason For Study: Near syncope History: Near syncope. Ordering Physician: RETA AMEZCUA Performed By: Oksana Ferreira Interpretation Summary The left ventricle is normal in size. There is normal left ventricular wall thickness. LV EF is > than 55% Left ventricular systolic function is normal. Doppler measurements suggest impaired left ventricular relaxation, which is associated with grade I/IV or mild diastolic dysfunction The left ventricular wall motion is normal. The right ventricle is normal in size and function. The right atrium is normal. The left atrial size is normal. There is no evidence of mitral valve prolapse. There is no mitral valve stenosis. There is a trace to mild amount of mitral regurgitation There is no aortic valvular vegetation. There is no aortic valve stenosis There is no LVOT obstruction. There is a mild amount of aortic regurgitation There is no tricuspid stenosis. Right ventricular systolic pressure is normal. There is a trace amount of tricuspid regurgitation RVSP is 12.3 mm of Hg , with RA mean of 10. There is no pulmonic valvular regurgitation. There is no pulmonic valvular stenosis. There is no pericardial effusion. MMode/2D Measurements & Calculations RVDd: 2.7 cm LVIDd: 5.4 cm FS: 32.2 % Ao root diam: 3.2 cm IVSd: 1.1 cm LVIDs: 3.7 cm EDV(Teich): 142.6 ml Ao root area: 8.1 cm2 LVPWd: 1.1 cm ESV(Teich): 57.3 ml LA dimension: 3.8 cm EF(Teich): 59.9 % Doppler Measurements & Calculations MV E max saw: MV P1/2t max saw: Ao V2 max: AI dec slope: 89.8 cm/sec 100.8 cm/sec 99.0 cm/sec 82.8 cm/sec2 MV A max saw: MV P1/2t: 67.2 msec Ao max P.6 cm/sec MVA(P1/2t): 3.3 cm2 3.9 mmHg MV E/A: 0.84 MV dec slope: 439.5 cm/sec2 MV dec time: 0.24 sec LV V1 max PG: TV V2 max: 76.0 cm/secPA V2 max: MV P1/2t-pr_phl: 3.0 mmHg TV max P.3 mmHg 92.3 cm/sec 67.2 msec LV V1 max: PA max P.4 cm/sec 3.4 mmHg Left Ventricle The left ventricle is normal in size. There is normal left ventricular wall thickness. LV EF is > than 55%. Left ventricular systolic function is normal. Doppler measurements suggest impaired left ventricular relaxation, which is associated with grade I/IV or mild diastolic dysfunction. The left ventricular wall motion is normal. There is no thrombus. Right Ventricle The right ventricle is normal in size and function. Atria The right atrium is normal. The left atrial size is normal. Mitral Valve There is no evidence of mitral valve prolapse. There is no vegetation seen on the mitral valve. There is no mitral valve stenosis. There is a trace to mild amount of mitral regurgitation. Aortic Valve There is no aortic valvular vegetation. There is no aortic valve stenosis. There is no LVOT obstruction. There is a mild amount of aortic regurgitation. Tricuspid Valve There is no tricuspid stenosis. Right ventricular systolic pressure is normal. There is a trace amount of tricuspid regurgitation. RVSP is 12.3 mm of Hg , with RA mean of 10. Pulmonic Valve There is no pulmonic valvular stenosis. There is no pulmonic valvular regurgitation. Great Vessels The aortic root is not well visualized but is probably normal size. Effusions There is no pericardial effusion. : RETA AMEZCUA > Jocelyn Preston
== END 2018-09-08 14:25 | disposition home or self-care (01) ==
LOC: ER 18:09 → EH 20:50 → 4N 23:13
PROVIDERS: ADMIT Internal Medicine; ATTEND Internal Medicine
DX: R55 Syncope and collapse (principal); I95.1 Orthostatic hypotension; N17.9 Acute kidney failure, unspecified; E86.0 Dehydration; G30.1 Alzheimer's disease with late onset; F02.80 Dementia in other diseases classified elsewhere, unspecified severity, without behavioral disturbance, psychotic disturbance, mood disturbance, and anxiety; I50.32 Chronic diastolic (congestive) heart failure; E86.1 Hypovolemia; I48.0 Paroxysmal atrial fibrillation; I45.2 Bifascicular block; I25.2 Old myocardial infarction; F17.210 Nicotine dependence, cigarettes, uncomplicated; Z79.02 Long term (current) use of antithrombotics/antiplatelets; Z95.0 Presence of cardiac pacemaker; Z90.49 Acquired absence of other specified parts of digestive tract; Z79.899 Other long term (current) drug therapy
CPT/HCPCS: 93005 ×2; 99285; 96360; 96361; 36415 ×3; 80162; 83735 ×3; 85025; 85027 ×2; 85610; 85730; 80048; 80053 ×2; 81001; 84484 ×2; 83880; 93306; 93880; 71045; 93010; 97110; 97116; 97163; G0378 ×3; A9270 ×8; J7030 ×2; J7040; G8978; G8979; J3490